=== PATIENT | female | born 1965 | race Caucasian/White ===

== ENCOUNTER → 2019-12-17 | Outpatient (CLI) | payer MEDICARE, MEDICAID, SELFPAY ==
--- NOTE | 2019-12-17 | BRBX_PTH ---
PATIENT: JAMES AMRX LOC: [facility] U#:[id number] AGE/SX: 54/F ROOM: RE12/17/[address]: Dr. Kory Vo MD : 1965 BED: DIS: 12/17/2019 SPEC #: [id number] RECD: 12/17/19 14:24 STATUS: KAYCEE REQ #: [id number] SE: 12/17/19 00:[address]: Kory Vo DEPT: SURGICAL PATHOLOGY RECD BY: Anthony Arriola ENTERED: 12/18/19 08:08 SP TYPE: BREAST BX OTHR DR: Dr. Fredis Salinas MD Tissues: Left breast, NOS Procedures: Surgery Specimen Level IV HEADER OPERATION: Ultrasound-guided left breast biopsy PRE-OP DIAGNOSIS: Abnormal mammogram TISSUE SUBMITTED: Left breast biopsy ISCHEMIC TIME: <30 seconds FIXATION TIME: 78.5 hours MICROSCOPIC DIAGNOSIS Left breast, ultrasound-guided core biopsy: Fragments of benign breast tissue with focal fibrosis. Negative for atypia or malignancy. GINGER:kira 12/21/19 COMMENT Correlation with clinical, radiologic findings and appropriate follow up are necessary. MICROSCOPIC DESCRIPTION Slides are reviewed. GROSS DESCRIPTION Received in fixative is one container labeled with the patient's name and designated left breast biopsy. The specimen consists of multiple irregular fragments of light kulkarni soft tissue that in aggregate measure 1 x 0.2 x 0.1 cm. The specimen is totally submitted in one cassette. / AM:kira 12/18/19 TC:5 CPT: 22580
[2019-12-17 12:51] VITALS: BMI 38.7
== END | disposition home or self-care (01) ==
LOC: LABSPEC 14:37
PROVIDERS: PCP Family Medicine; Referring Provider Surgery; Visit Provider Surgery
DX: R92.8 Other abnormal and inconclusive findings on diagnostic imaging of breast (principal)
CPT/HCPCS: 88305

== ENCOUNTER 2019-12-28 07:10 | Day surgery (SDC) | payer MEDICARE, MEDICAID, SELFPAY ==
[2019-12-07 12:32] VITALS: BMI 38.7
[2019-12-17 12:51] VITALS: BMI 38.7
[2019-12-28 07:58] VITALS: BP 134/92; PULSE 83; RESP 20; TEMP 36.2; O2SAT 96; BMI 39.4
[2019-12-28] MEDS: Lactated Ringers 1,000 ML 100 ML IV (08:11)
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
[2019-12-28 08:46] VITALS: BP 132/83; BP 134/92; PULSE 85; RESP 16; TEMP 36.5; O2SAT 96
--- NOTE | 2019-12-28 08:46 | OP.COLON_ITS ---
Patient Name: Danielle Perry Procedure Date: 12/28/2019 8:23 AM Date of : 1965 Age: 54 Procedure: Colonoscopy Indications: Screening for colorectal malignant neoplasm Providers: Kory Vo MD Referring MD: Fredis Salinas Medicines: See the Anesthesia note for documentation of the administered medications Patient Profile: This is a 54 year old female. Refer to note in patient chart for documentation of history and physical. Last Colonoscopy: none. The patient's first colonoscopy is today. Complications: No immediate complications. Procedure: Pre-Anesthesia Assessment: - Prior to the procedure, a History and Physical was performed, and patient medications and allergies were reviewed. The patient's tolerance of previous anesthesia was also reviewed. The risks and benefits of the procedure and the sedation options and risks were discussed with the patient. All questions were answered, and informed consent was obtained. Prior Anticoagulants: The patient has taken no previous anticoagulant or antiplatelet agents. ASA Grade Assessment: III - A patient with severe systemic disease. After reviewing the risks and benefits, the patient was deemed in satisfactory condition to undergo the procedure. After I obtained informed consent, the scope was passed under direct vision. Throughout the procedure, the patient's blood pressure, pulse, and oxygen saturations were monitored continuously. The Colonoscope was introduced through the anus and advanced to the cecum, identified by appendiceal orifice and ileocecal valve. The colonoscopy was performed without difficulty. The patient tolerated the procedure well. The quality of the bowel preparation was fair. Scope In: 8:31:53 AM Scope Withdrawal Time 0 hours 6 minutes 23 seconds Scope Out: 8:42:09 AM Total Procedure Duration Time 0 hours 10 minutes 16 seconds Findings: Non-bleeding internal hemorrhoids were found during retroflexion. The hemorrhoids were mild and small. A few small-mouthed diverticula were found in the sigmoid colon. The exam was otherwise without abnormality. Impression: - Preparation of the colon was fair. - Non-bleeding internal hemorrhoids. - Diverticulosis in the sigmoid colon. - The examination was otherwise normal. - No specimens collected. Recommendation: - Discharge patient to home. - Resume previous diet. - Continue present medications. - Await pathology results. - Repeat colonoscopy in 10 years for screening purposes. - Return to primary care physician PRN. Procedure Code(s): --- Professional --- 94464, Colonoscopy, flexible; diagnostic, including collection of specimen(s) by brushing or washing, when performed (separate procedure) Diagnosis Code(s): --- Professional --- Z12.11, Encounter for screening for malignant neoplasm of colon K64.8, Other hemorrhoids K57.30, Diverticulosis of large intestine without perforation or abscess without bleeding CPT copyright 2017 [employer]. All rights reserved. The codes documented in this report are preliminary and upon forestry worker review may be revised to meet current compliance requirements. MD Kory Hernandez MD 12/28/2019 8:45:46 AM This report has been signed electronically. Number of Addenda: 0 Note Initiated On: 12/28/2019 8:23 AM
--- NOTE | 2019-12-28 08:46 | OP.CCLET_ITS ---
12/28/2019 Fredis Salinas [address] [place] [address] Re : Colonoscopy procedure for Danielle Perry Dear Dr. Salinas This procedure was performed on Saturday, December 28, 2019. My impressions and recommendations are as follows: Impressions : - Preparation of the colon was fair. - Non-bleeding internal hemorrhoids. - Diverticulosis in the sigmoid colon. - The examination was otherwise normal. - No specimens collected. Recommendations : - Discharge patient to home. - Resume previous diet. - Continue present medications. - Await pathology results. - Repeat colonoscopy in 10 years for screening purposes. - Return to primary care physician PRN. My findings are described in the full procedure note, which is enclosed. If I can be of further assistance, please feel free to contact me at Doctor phone number(s): , Fax: [phone], Work: . Sincerely, MD Kory Hernandez MD 12/28/2019 8:45:46 AM This report has been signed electronically.
[2019-12-28 08:50] VITALS: BP 134/92; BP 140/84; PULSE 84; RESP 16; O2SAT 96
[2019-12-28 08:55] VITALS: BP 126/85; BP 134/92; PULSE 86; RESP 16; O2SAT 94
[2019-12-28 09:00] VITALS: BP 129/83; BP 134/92; PULSE 80; RESP 16; TEMP 36.5; O2SAT 98
[2019-12-28 09:26] VITALS: BP 134/92
== END 2019-12-28 09:26 | disposition home or self-care (01) ==
LOC: EN 07:12 → AC 07:13
PROVIDERS: Anesthesiology; PCP Family Medicine; Referring Provider Family Medicine; Visit Provider Surgery
PROC: 0DJD8ZZ Inspection of Lower Intestinal Tract, Via Natural or Artificial Opening Endoscopic (ICD-10-PCS; CPT 45378; principal; 2019-12-28 08:25)
DX: Z12.11 Encounter for screening for malignant neoplasm of colon (principal); K57.30 Diverticulosis of large intestine without perforation or abscess without bleeding; K64.8 Other hemorrhoids; Z11.59 Encounter for screening for other viral diseases; M19.90 Unspecified osteoarthritis, unspecified site; J45.909 Unspecified asthma, uncomplicated; Z87.11 Personal history of peptic ulcer disease; Z78.0 Asymptomatic menopausal state; Z87.01 Personal history of pneumonia (recurrent); Z85.43 Personal history of malignant neoplasm of ovary; Z98.1 Arthrodesis status; F17.200 Nicotine dependence, unspecified, uncomplicated; F12.90 Cannabis use, unspecified, uncomplicated
CPT/HCPCS: G0121; 87635; 94799; J7120; J1610; J2405; U0003